=== PATIENT | female | born 1965 | race Caucasian/White ===

== ENCOUNTER → 2017-02-01 | Outpatient (CLI) | payer OTHER | LOC: CIMAGING 10:27 | PROVIDERS: ATTEND Family Medicine | DX: Z12.31 Encounter for screening mammogram for malignant neoplasm of breast (principal) | CPT/HCPCS: G0202 ==

== ENCOUNTER → 2017-02-15 | Outpatient (CLI) | payer OTHER | LOC: CIMAGING 12:34 | PROVIDERS: ATTEND Family Medicine | DX: Z12.39 Encounter for other screening for malignant neoplasm of breast (principal); R92.8 Other abnormal and inconclusive findings on diagnostic imaging of breast | CPT/HCPCS: G0206 ==

== ENCOUNTER → 2018-09-12 | Outpatient (CLI) | payer OTHER | LOC: CIMAGING 14:28 | PROVIDERS: ATTEND Family Medicine | DX: Z12.31 Encounter for screening mammogram for malignant neoplasm of breast (principal) ==

== ENCOUNTER → 2018-09-28 | Outpatient (CLI) | payer OTHER | LOC: FIMAGING 14:13 | PROVIDERS: ATTEND Family Medicine | DX: R92.8 Other abnormal and inconclusive findings on diagnostic imaging of breast (principal) ==

== ENCOUNTER 2018-10-17 11:44 | Observation (INO) | payer OTHER ==
--- NOTE | 2018-10-17 12:34 | PDHPUP ---
History & Physical Update H&P update statement: This history and physical update is based on an assessment of the patient which was completed after admission or registration (within 24 hours), but prior to the surgery/procedure. H&P update: H&P reviewed & patient examined, no change in patient's condition since H&P completed
[2018-10-17] MEDS ORDERED: LIDOCAINE 1% 2 ML INJ ID PRN (12:41)
[2018-10-17] MEDS ORDERED: LR 1,000 ML IV ONE (12:41)
--- NOTE | 2018-10-17 13:09 | PDANEPAE ---
ANE History of Present Illness thyroidectomy ANE Past Medical History - Cardiovascular History Hx Hypertension: No Hx Arrhythmias: Yes Hx Chest Pain: No Hx Coronary Artery / Peripheral Vascular Disease: No Hx CHF / Valvular Disease: No Hx Palpitations: No Cardiovascular History Comment: states has irregular beats, does not see anyone for. hx of abnormal EKG. EKG today with 1st degree AV block, LAFB, probable LVH - Pulmonary History Hx COPD: No Hx Asthma/Reactive Airway Disease: No Hx Recent Upper Respiratory Infection: No Hx Oxygen in Use at Home: No Hx Sleep Apnea: Yes Sleep Apnea Screening Result - Last Documented: Positive Pulmonary History Comment: PE in 1994 after childbirth. states 20% of lungs is scar tissue since PE. 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 hyperparathyroid - Renal History Hx Renal Disorders: Yes Renal History Comment: Hx of kidney stones - Liver History Hx Hepatic Disorders: Yes Hepatic History Comment: enlarged, fatty liver - Neurological & Psychiatric Hx Hx Neurological and Psychiatric Disorders: Yes Neurological / Psychiatric History Comment: anxiety, depression - Cancer History Hx Cancer: Yes Cancer History Comment: skin CA, spots removed from face - Congenital Disorder History Hx Congenital Disorders: No - GI History GERD: moderate Hx Gastrointestinal Disorders: Yes Gastrointestinal History Comment: GERD - Other Health History Other Health History: wears glasses, bilateral cataracts - Chronic Pain History Chronic Pain: No - Surgical History Prior Surgeries: C3-4 ACDF. IVC filter placement, 25 years ago. skin Ca removals, shoulder & face. colonoscopy ANE Review of Systems Review of Systems: - Exercise capacity METS (RN): 2 METS (ambulates with wheelchair for the last 5 years) ANE Patient History - Allergies Allergies/Adverse Reactions: fentanyl Allergy (Verified 10/12/18 11:45) "stops breathing" Latex, Natural Rubber Allergy (Verified 10/12/18 11:45) Rash oxycodone HCl [From Percocet] Allergy (Verified 10/12/18 11:45) Itching - Home Medications Home Medications: Multivitamins [Multivitamin (*)] 1 each PO DAILY 10/12/18 [Last Taken Unknown] Omeprazole 20 mg PO DAILY 10/12/18 [Last Taken 10/17/18 09:00] Simvastatin [Zocor] 20 mg PO DAILY18 10/12/18 [Last Taken 10/17/18 09:00] Aspirin [Aspirin 81mg (*)] 81 mg PO DAILY 10/17/18 [Last Taken 10/17/18 09:00] - Anes Hx Anes Hx: no prior problems - Smoking Hx Smoking Status: Never smoked Marijuana use: No - Alcohol Use Alcohol Use: None - Family Anes Hx Family Anes Hx: none Family Hx Anesthesia Complications: none ANE Labs/Vital Signs - Labs Result Diagrams: 10/17/18 13:00 - Vital Signs Blood Pressure: 125/82 Heart Rate: 67 Respiratory Rate: 22 O2 Sat (%): 93 Height: 162.56 cm Weight: 68.039 kg ANE Physical Exam - Airway Neck exam: decreased ROM (decreased lateral ROM) Mallampati Score: Class 1 Mouth exam: normal dental/mouth exam - Pulmonary Pulmonary: clear to auscultation - Cardiovascular Cardiovascular: regular rate and rhythym - ASA Status ASA Status: III ANE Anesthesia Plan Anesthesia Plan: general endotracheal anesthesia Total IV Anesthesia: Yes
[2018-10-17] MEDS ORDERED: BUPIVACAINE/EPI 0.5% 30 ML SDV ONE (13:48)
[2018-10-17] MEDS ORDERED: REMIFENTANIL HCL 1 MG VIAL ONE ×2 (14:01→16:10)
[2018-10-17] MEDS ORDERED: PROPOFOL/EMULSION 500 MG/50 ML BOTTLE IV ONE (14:01)
[2018-10-17] MEDS ORDERED: ROCURONIUM 50 MG/5 ML VIAL ONE (14:02)
[2018-10-17] MEDS ORDERED: DEXAMETHASONE 4 MG/ML VIAL ONE (14:12)
[2018-10-17] MEDS ORDERED: PROPOFOL 200 MG/20 ML VIAL ONE ×4 (15:23→16:52)
[2018-10-17] MEDS ORDERED: fentaNYL 100 MCG/2 ML INJ ONE ×2 (15:43→17:54)
[2018-10-17] MEDS ORDERED: ONDANSETRON 4 MG/2 ML VIAL ONE (16:08)
[2018-10-17] MEDS ORDERED: SUGAMMADEX SODIUM 200 MG/2 ML VIAL IVP ONE (16:58)
[2018-10-17] MEDS ORDERED: KETOROLAC 30 MG/1 ML SDV ONE (17:00)
--- NOTE | 2018-10-17 17:16 | POSTOPPROG ---
Post Op Note Date of Operation: 10/17/18 Surgeon: Adi Augustine Ear Muff Assembler: Indira Burdick Anesthesiologist: Jr Smith Anesthesia: GET(General Endotracheal) Pre-op Diagnosis: Symptomatic MNG, Primary hyperparathyroidism Post-op Diagnosis: Same Procedure: Total thyroidectomy, parathyroidectomy Findings: Multilobulated R>L thyroid gland. Inf/Abcess present in the surg proc area at time of surgery?: No EBL: Minimal Specimen(s): thyroid, left upper and lower neck biopsies
[2018-10-17] MEDS ORDERED: NALOXONE HCL 0.4 MG/ML INJ IVP PRN (17:24)
[2018-10-17] MEDS ORDERED: fentaNYL 100 MCG/2 ML INJ IVP PRN (17:24)
[2018-10-17] MEDS ORDERED: ONDANSETRON 4 MG/2 ML VIAL IVP PRN ×2 (17:24→17:47)
--- NOTE | 2018-10-17 17:27 | POSTANESTH ---
Post Anesthetic Evaluation Cardiovascular Status: Similar to Pre-Op Cond Respiratory Status: Normal, Stable Level of Consciousness/Mental Status: Can Participate in Eval Pain Control: Adequate, Prn Tx Ordered Nausea/Vomiting Control: Adequate, Prn Tx Ordered Complications Possibly Related to Anesthesia: None Noted
[2018-10-17] MEDS ORDERED: TEMAZEPAM 15 MG CAP PO PRN (17:47)
[2018-10-17] MEDS ORDERED: traMADol 50 MG TAB PO PRN (17:47)
[2018-10-17] MEDS ORDERED: HYDROCODONE/APAP 5/325 TAB PO PRN (17:47)
[2018-10-17] MEDS ORDERED: ATORVASTATIN CALCIUM 10 MG TAB PO SCH (18:00)
--- NOTE | 2018-10-17 20:56 | GOP ---
[f rep st] OPERATIVE REPORT DATE OF OPERATION: 10/17/2018 SURGEON: Adi Augustine MD CHEMISTRY TECHNICIAN: Indira Burdick PA-C. ANESTHESIA: General. ANESTHESIOLOGIST: Jr Smith MD. PREOPERATIVE DIAGNOSIS: 1. Symptomatic multinodular goiter. 2. Primary hyperparathyroidism. POSTOPERATIVE DIAGNOSIS: 1. Symptomatic multinodular goiter. 2. Primary hyperparathyroidism. PROCEDURE PERFORMED: Total thyroidectomy with parathyroidectomy. FINDINGS: Large multilobulated, multinodular goiter, suspect left neck single versus double adenoma. INDICATIONS: 53-year-old female with a progressively enlarging multinodular goiter with compressive symptoms. Prior needle biopsies disclosed evidence of a benign multinodular goiter. Imaging studies also disclosed a possible left neck parathyroid adenoma with biochemical findings consistent with primary hyperparathyroidism. She is undergoing a parathyroid exploration with total thyroidectomy at this time. Risks and benefits were explained including bleeding, infection, recurrent laryngeal nerve injury, permanent hypothyroidism , hypoparathyroidism, alternative diagnoses, failure to identify gland, as well as others. All questions were answered. She desires to proceed. front desk assistant is standard, necessary, and customary for the safe performance of this procedure. DESCRIPTION OF PROCEDURE: General anesthesia was induced. The neck was pre- injected with 0.5% Marcaine with epinephrine. A low collar incision was created. The platysma and strap muscles were all . The left lele neck cavity was initially unroofed. Of note, throughout bilateral lele neck cavities was significant edema throughout all workable tissues along with friability. The left thyroid lobe was elevated up into the operative field. The superior and inferior vascular pedicles were both circumferentially encompassed, and divided with the ultrasonic dissector, as was the middle thyroid vein. The recurrent laryngeal nerve was identified coursing into the cricothyroid muscle, which was left undisturbed throughout the remaining aspects of the dissection. The left upper pole parathyroid gland was easily identified. This appeared to be slightly enlarged and firm. This was initially left undisturbed. Further dissection showed a second subcapsular nodule within the lower aspect of the thyroid lobe as seen on preoperative ultrasound that also appeared firm and initially suspicious for abnormal parathyroid tissue. The lower pole suspect gland was dissected away from the thyroid capsule and placed aside as this was unable to be salvaged. The left upper pole gland was left alone pending contralateral neck dissection findings. The thyroid gland was taken from lateral to medial, incorporating [place] fibers. No discernible thyroid was left on this side. The gland was taken across the isthmus, which was also diminutive in size and coursing towards the extremely large multilobulated right lele-thyroid lobe. The adherent strap muscles from prior fine-needle aspiration were dissected away from the thyroid capsule. The multilobulated lobe was teased away from the deep aspect of the lele neck cavity. Portions of this wrapped around posterior to the esophagus inferiorly and posterior to the trachea superiorly. The gland was carefully dissected away from the recurrent laryngeal nerve, which was easily identified and preserved throughout the remaining dissection. The right nerve was much larger than the left. The inferior pole vascular pedicle was circumferentially encompassed at this point and divided with the ultrasonic dissector as was the superior thyroid vasculature. The middle thyroid vein was and the gland again peeled from lateral to medial. The soft normal-appearing upper pole parathyroid gland was identified superior to the intersection of the recurrent laryngeal nerve and inferior thyroid artery. This was tagged with a Hemoclip and left undisturbed. Sitting with the larger areas of fibrofatty neck tissue at the thoracic inlet was a soft clinically normal-appearing lower pole parathyroid gland. This was also tagged with a Hemoclip and left undisturbed. The thyroid was removed from the field, tagged for orientation, and sent for permanent specimen processing. Further left neck exploration was undertaken to further assess for an additional lower pole gland. The neck was explored along the retrotracheal, retroesophageal, as well as thoracic inlets. The thymus gland was easily elevated in the operative field, showing this to be soft and normal in appearance without evidence of clinically adenomatous parathyroid gland. The carotid sheath was opened and the compartment explored to the carotid bifurcation, showing no other suspicious abnormal parathyroid tissue. As noted on the opposite side were a large amount of shotty adenopathy peppered throughout the entire lele neck cavity, none of which appeared clinically adenomatous. Given the abnormal appearance of the upper pole parathyroid gland relative to the 2 right-sided glands and suspect left lower neck abnormality, this gland was also excised and sent for permanent processing. Preoperative PTH level was 85. Ten and 15-minute values were obtained measuring 15 and 11. Satisfactory hemostasis was assured throughout bilateral lele neck cavities. Both right neck parathyroid glands were both confirmed to be pink and viable. The neck was closed in layers with absorbable suture by Dermabond. The patient was taken to the recovery room extubated uneventfully. /[id number]/MODL MTDD
[2018-10-17] MEDS: IBUPROFEN 600 MG TAB PO SCH (21:39)
[2018-10-18] MEDS: IBUPROFEN 600 MG TAB PO SCH (05:04)
[2018-10-18] MEDS ORDERED: LEVOTHYROXINE 125 MCG TAB PO SCH (06:00)
[2018-10-18 07:23] VITALS: BP 121/77
[2018-10-18] MEDS ORDERED: PANTOPRAZOLE SODIUM 40 MG TAB PO SCH (09:00)
[2018-10-18] MEDS ORDERED: ASPIRIN 81 MG CHEWABLE TAB PO SCH (09:00)
--- NOTE | 2018-10-18 09:02 | CPEKG ---
Test Reason : OPEN Blood Pressure : / mmHG Vent. Rate : 061 BPM Atrial Rate : 061 BPM P-R Int : 218 ms QRS Dur : 116 ms QT Int : 431 ms P-R-T Axes : -24 -55 -05 degrees QTc Int : 434 ms Sinus rhythm First degree AV block. Left anterior fascicular block Probable left ventricular hypertrophy Borderline T abnormalities, consider inferior ischemia. Confirmed by Cristhian Jules ([id number]) on 10/18/2018 9:02:42 AM Referred By: EFREM GILLILAND Confirmed By:Cristhian Jules
--- NOTE | 2018-10-18 09:18 | SOAPPROG ---
MIRIAM Progress Note Assessment/Plan: Assessment/Plan: S/p total thyroidectomy and parathyroidectomy POD#1. Doing very well. Calcium in normal range this am. Okay for discharge to home. Pain well controlled with [place], however she expresses preference for Tramadol. Will provide her prescriptions for Tramadol and Synthroid today. Discussed calcium supplement and when to stop prior to next calcium lab draw. All questions addressed. Will see her in office in 2 weeks. 10/18/18 09:14 Subjective: No overnight concerns. Minimal voice hoarseness. No swallowing concerns. Pain well controlled with medication. No numbness or tingling. Objective: Vital Signs Temp Pulse Resp BP Pulse Ox 36.4 C 72 18 121/77 H 91 L 10/18/18 07:22 10/18/18 07:22 10/18/18 07:22 10/18/18 07:22 10/18/18 07:22 Laboratory Results 10/17/18 13:00 10/17/18 10/18/18 10/19/18 05:59 05:59 05:59 Intake Total 1150 Output Total 1650 Balance -500 Physical Exam: Gen: A&O x3, appears comfortable, AVSS HEENT: incision clean without erythema, early ecchymosis, trachea midline CV: RRR Lungs: CTA bilateral Extremities: no edema Calcium 9.3 ICD10 Worksheet Patient Problems: Problems Problem Status Onset Multinodular thyroid Acute Primary hyperparathyroidism Acute - ICD10 Problem Qualifiers (1) Multinodular thyroid (2) Primary hyperparathyroidism
--- NOTE | 2018-10-18 11:07 | GDS ---
[f rep st] DISCHARGE SUMMARY 53-year-old female who underwent a total thyroidectomy and parathyroidectomy on October 17, 2018. She had uneventful postoperative course. She was tolerating meals and her pain was well controlled on oral analgesics. She had no difficulty swallow and minimal voice hoarseness. Her calcium level was in normal range this morning. She was discharged to home in good condition. She was provided prescriptions for Synthroid and tramadol as needed for discomfort. She will follow up in the office in 2 weeks. Her current medications include aspirin, Lipitor, Synthroid and Protonix. Full discharge instructions were provided. /[id number]/MODL MTDD
== END 2018-10-18 11:05 | disposition home or self-care (01) ==
LOC: F3N 11:44 → F3E 17:53
PROVIDERS: ADMIT Surgery; ATTEND Surgery
DX: E04.2 Nontoxic multinodular goiter (principal); E21.0 Primary hyperparathyroidism; G71.11 Myotonic muscular dystrophy
CPT/HCPCS: 60240; 60500; 93005; J1100; J1885; J2405; J2704; J3010